=== PATIENT | male | born 1985 | race Two or more races ===

== ENCOUNTER 2018-10-11 10:07 | Inpatient (IN) | payer SELFPAY ==
--- NOTE | 2018-10-11 10:24 | ER Document Report ---
ED General - General Chief Complaint: Seizure Stated Complaint: POSSIBLE SEIZURE Time Seen by Provider: 10/11/18 10:23 Mode of Arrival: Medic Information source: Patient, Emergency Med Personnel - [facility] Notes: 31-year-old male to the emergency department via EMS with complaints of possible seizure. Medics report that a bystander called them when they found the patient on the ground and felt like maybe it had a seizure. When medics arrived he was up and walking around on the scene. Patient is Yoruba-speaking only and an deaf interpreter was used to gather history. Patient reports that this morning he went to work and then found out that he did not have to work. States that he was taken to a house that was not his by his boss and left there. States that he remembers feeling dizzy and lightheaded and starting to see "butterflies". He states that after that he remembers getting water. He does not know if there is anybody around him in this time where he does not know what happened. He states he has never had a seizure before. He states that he drinks approximately 3-4 beers a week and his last intake was on Thursday when he drank 4 beers. States he has no other medical problems. Denies drug use. Denies headache, chest pain, shortness of breath, diaphoresis, abdominal pain, back pain, leg pain. Of note he states that his tongue is bruised and he does not kn ow why. He is not up-to-date on his tetanus. 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 denies: Chest pain, Palpitations, Heart racing, Syncope, Edema Respiratory: denies: Cough, Short of breath Gastrointestinal: denies: Abdominal pain, Diarrhea, Nausea, Vomiting Genitourinary: denies: Frequency, Flank pain, Hematuria Musculoskeletal: denies: Leg swelling, Ankle swelling Neurological/Psychological: Other - Possible seizure-like activity. denies: Numbness -: Yes All other systems reviewed and negative Physical Exam - Vital signs Vitals: Resp BP Pulse Ox 20 144/99 H 95 10/11/18 10:16 10/11/18 10:16 10/11/18 10:16 - General In distress: None - HEENT Head: Normocephalic, Atraumatic Eyes: Normal Pupils: PERRL Mouth/Lips: Other - To the left lateral aspect of the tongue, there is an abrasion, edema, and ecchymosis likely from tongue biting, airway is grossly patent - Respiratory Respiratory status: No respiratory distress Chest status: Nontender Breath sounds: Normal Chest palpation: Normal - Cardiovascular Rhythm: Regular Heart sounds: Normal auscultation, S1 appreciated, S2 appreciated Murmur: No - Abdominal Inspection: Normal Distension: No distension Bowel sounds: Normal Tenderness: Nontender Organomegaly: No organomegaly - Back Back: Normal, Nontender. No: Vertebra tenderness, Wounds - Extremities General upper extremity: Normal inspection, Nontender, Normal color, Normal ROM, Normal temperature General lower extremity: Normal inspection, Nontender, Normal color, Normal ROM, Normal temperature, Normal weight bearing. No: Luís's sign - Neurological Neuro grossly intact: Yes Cognition: Normal Orientation: Disoriented to time. No: Disoriented to person - Lasix may, Disoriented to place [place] Coma Scale Eye Opening: Spontaneous [place] Coma Scale Verbal: Oriented [place] Coma Scale Motor: Obeys Commands [place] Coma Scale Total: 15 Speech: Normal Cranial nerves: Normal Cerebellar coordination: Normal - Normal finger to nose Additional motor exam normals: Equal mind reader, Other - Noted bilateral arm tremors and when lifting legs for leg drift there is also tremor; vision states this is a new symptom. No: Pronator drift - Psychological Associated symptoms: Normal affect, Anxious - Skin Skin Temperature: Warm Skin Moisture: Dry Skin Color: Normal Course - Vital Signs Vital signs: Temp Pulse Resp BP Pulse Ox 14 127/90 H 95 10/11/18 19:01 10/11/18 19:00 10/11/18 19:01 - Laboratory Result Diagrams: 10/11/18 10:19 10/11/18 10:19 Laboratory results interpreted by me: 10/11/18 10/11/18 10/11/18 10: 10:19 12:50 WBC 2.2 L Plt Count 78 L Abs Neuts (Manual) 1.0 L Potassium 3.5 L Carbon Dioxide 20 L Glucose 170 H Calcium 10.4 H Total Bilirubin 4.3 H Direct Bilirubin 1.5 H AST 231 H ALT 205 H Total Protein 8.6 H Albumin 5.2 H Urine Protein 100 H Urine Ketones 20 H Urine Urobilinogen 4.0 H - Transfer of Care Notes: 10/11/18 15:37 Progress: Noted labs and imaging. This patient for alcohol withdrawal seizures. Discussed patient with Dr. Delcid and we both agree that patient should be admitted for further management of alcohol withdrawal seizures. Went and rounded on patient, used deaf interpreter. Explained to patient about his labs and my concerns for alcohol withdrawal seizures and advised admission for further management. We had a lengthy conversation and he feels like he cannot stay due to work conflict. He does think that if he could go for an hour and he could return for treatment. Initially when evaluating patient he had some confusion on the month and thought it was august. His confusion has resolved and its possible that that is was related to a postictal state. He had a very intelligent and insightful conversation with me about his care and I have advised him that if he leaves he could have serious medical outcomes such as recurrence of seizure, hitting his head and sustaining a head injury, worsening alcohol withdrawal that leads to delirium tremens and in the encephalopathy, and could lead to . He voiced understanding and states he will return in 1 hour for admission and treatment. We did ambulate the patient and he did well. His tremors have significantly improved after getting Ativan. I discussed the fact that patient wanted to leave with Dr. Delcid and we both agree that he has medical capacity to make decision. However, we will have him sign an AGAINST MEDICAL ADVICE form. Plan to give thiamine and folic acid prior to discharge. Encourage the patient to return at any time for further treatment. Progress: Just prior to leaving [facility], patient decided he would stay for further care. He requests more medicine for his tremors as they have been starting to worsen. Will call Hospitalist team for admission Spoke with Dr. Govea, hospitalist, about the patient. He is aware of history of presenting illness, patient's labs, patient's tongue, ativan given to patient, abnormal liver enzymes. He agrees with the plan for admission and accepts patient onto his service. Discharge - Discharge Clinical Impression: Alcohol withdrawal seizure, Alcohol withdrawal, Abrasion of tongue, Elevated blood pressure reading Disposition: ADMITTED INPATIENT Admitting Provider: Xuan (Hospitalist) Unit Admitted: Telemetry
[2018-10-11 10:46] LABS: HEMATOCRIT 42.1 % (37.9-51.0); HEMOGLOBIN 14.8 g/dL (13.5-17.0); MEAN CORPUSCULAR HEMOGLOBIN 32.5 pg (27.0-33.4); MEAN CORPUSCULAR HGB CONC 35.1 g/dL (32.0-36.0); MEAN CORPUSCULAR VOLUME 93 fl (80-97); RED BLOOD COUNT 4.55 10^6/uL (4.35-5.55); RED CELL DISTRIBUTION WIDTH 13.8 % (11.5-14.0); WHITE BLOOD COUNT 2.2 10^3/uL (4.0-10.5)
[2018-10-11 11:06] LABS: PLATELET COUNT 78 10^3/uL (150-450)
[2018-10-11 11:09] LABS: ALANINE AMINOTRANSFERASE 205 U/L (21-72); ALBUMIN 5.2 g/dL (3.5-5.0); ALKALINE PHOSPHATASE 80 U/L (38-126); ANION GAP 19 (5-19); ASPARTATE AMINO TRANSFERASE 231 U/L (17-59); BILIRUBIN,DIRECT 1.5 mg/dL (0.0-0.4); BILIRUBIN,TOTAL 4.3 mg/dL (0.2-1.3); BLOOD UREA NITROGEN 12 mg/dL (7-20); CALCIUM 10.4 mg/dL (8.4-10.2); CARBON DIOXIDE 20 mmol/L (22-30); CHLORIDE 100 mmol/L (98-107); GLUCOSE 170 mg/dL (75-110); POTASSIUM 3.5 mmol/L (3.6-5.0); SODIUM 138.8 mmol/L (137-145); TOTAL PROTEIN 8.6 g/dL (6.3-8.2)
[2018-10-11 11:11] LABS: ABSOLUTE LYMPHOCYTES# (MANUAL) 0.9 10^3/uL (0.5-4.7); ABSOLUTE MONOCYTES # (MANUAL) 0.2 10^3/uL (0.1-1.4); ALCOHOL < 10 mg/dL (NONE DETECTED); BASOPHILS % (MANUAL) 1 % (0-2); EOSINOPHILS % (MANUAL) 1 % (0-6); LYMPHOCYTES % (MANUAL) 33 % (13-45); MONOCYTES % (MANUAL) 11 % (3-13); SEGMENTED NEUTROPHILS % (MAN) 45 % (42-78); TOTAL CELLS COUNTED 100
[2018-10-11 11:12] LABS: PLATELET COMMENT DECREASED; PLATELET LARGE PRESENT; RBC MORPHOLOGY COMMENT NORMO-CYTIC/CHROMIC
[2018-10-11] MEDS ORDERED: LORAZEPAM INJ 2 MG/1 ML VIAL IV ONE ×2 (11:46→17:00)
--- NOTE | 2018-10-11 11:47 | RADIOLOGY REPORT (SQ) ---
EXAM DESCRIPTION: CT HEAD WITHOUT COMPLETED DATE/TIME: 10/11/2018 11:31 am REASON FOR STUDY: possible seizure COMPARISON: None. TECHNIQUE: Axial images acquired through the brain without intravenous contrast. Images reviewed wi th bone, brain and subdural windows. Additional sagittal and coronal reconstructions were generated. Images stored on PACS. All CT scanners at this facility use dose modulation, iterative reconstruction, and/or weight based d osing when appropriate to reduce radiation dose to as low as reasonably achievable (ALARA). [facility]: Dose Right [facility]: CareDose [facility]: Dose Right [facility]: Teradose 4D [facility]: Topguest RADIATION DOSE: CT Rad equipment meets quality standard of care and radiation dose reduction techniq ues were employed. CTDIvol: 53.2 mGy. DLP: 991 mGy-cm. mGy. LIMITATIONS: None. FINDINGS: VENTRICLES: Normal size and contour. CEREBRUM: No masses. No hemorrhage. No midline shift. No evidence for acute infarction. Normal gra y/white matter differentiation. No areas of low density in the white matter. CEREBELLUM: No masses. No hemorrhage. No alteration of density. No evidence for acute infarction. EXTRAAXIAL SPACES: No fluid collections. No masses. ORBITS AND GLOBE: No intra- or extraconal masses. Normal contour of globe without masses. CALVARIUM: No fracture. PARANASAL SINUSES: No fluid or mucosal thickening. SOFT TISSUES: No mass or hematoma. OTHER: No other significant finding. IMPRESSION: NORMAL BRAIN CT WITHOUT CONTRAST. EVIDENCE OF ACUTE STROKE: NO. COMMENT: Quality ID # [id number]: Final reports with documentation of one or more dose reduction techniques (e.g., Automated exposure control, adjustment of the mA and/or kV according to patient size, use of iterative reconstruction technique) TECHNICAL DOCUMENTATION: JOB ID: [id number]- All Rights Reserved Reading location - IP/workstation name: [email or web address]
[2018-10-11] MEDS ORDERED: DIPH/PERTUSS(ACELL)/TETANUS VAC/PF 0.5 ML SYR (>=10YO) IM ONE (12:06)
[2018-10-11 13:28] LABS: AMORPHOUS SEDIMENT,URINE TRACE /HPF; APPEARANCE,URINE CLOUDY; BILIRUBIN,URINE NEGATIVE (NEGATIVE); COLOR,URINE AMBER; GLUCOSE, URINE NEGATIVE (NEGATIVE); KETONES,URINE 20 mg/dL (NEGATIVE); LEUKOCYTE ESTERASE,URINE NEGATIVE (NEGATIVE); NITRITE,URINE NEGATIVE (NEGATIVE); PROTEIN,URINE 100 mg/dL (NEGATIVE); URINE SPECIFIC GRAVITY 1.024
[2018-10-11 13:47] LABS: URINE AMPHETAMINES SCREEN NEGATIVE; URINE BARBITURATES SCREEN NEGATIVE; URINE BENZODIAZEPINES SCREEN NEGATIVE; URINE COCAINE SCREEN NEGATIVE; URINE MARIJUANA (THC) SCREEN NEGATIVE; URINE METHADONE SCREEN NEGATIVE; URINE PHENCYCLIDINE SCREEN NEGATIVE
[2018-10-11] MEDS ORDERED: THIAMINE HCL 100 MG, FOLIC ACID 1 MG in NORMAL SALINE 250 ML IV ONE (14:45)
[2018-10-11] MEDS ORDERED: NORMAL SALINE 1000 ML 1,000 ML IV ONE (14:45)
[2018-10-11 15:35] LABS: INTERNATIONAL RATION (INR) 1.12
[2018-10-11 15:36] LABS: PARTIAL THROMBOPLASTIN TIME 27.3 SEC (23.5-35.8)
[2018-10-11] MEDS ORDERED: GLUCAGON,HUMAN RECOMB 1 MG INJ SUBCUT PRN (17:45)
[2018-10-11] MEDS ORDERED: DEXTROSE 40% GEL 15 GM TUBE PO PRN ×2 (17:45)
[2018-10-11] MEDS ORDERED: DEXTROSE 50%-WATER 25 GM/50 ML DISP.SYRIN IV PRN ×2 (17:45)
[2018-10-11] MEDS ORDERED: LORAZEPAM INJ 2 MG/1 ML VIAL IV PRN (17:50)
[2018-10-11] MEDS ORDERED: LEVETIRACETAM INJ/PF 500 MG/5 ML SDV IV SCH (18:00)
--- NOTE | 2018-10-11 18:02 | PDOC H&P ---
History of Present Illness Admission Date/PCP: 10/11/18 17:12 Patient complains of: Brought in by EMS with seizure activity History of Present Illness: CHITRA MARQUEZ is a 32 year old male with history of alcohol abuse brought to the emergency room by EMS with seizure activity. According to the patient is walking this morning on the street all of a sudden felt like butterflies with blurred vision then second time he has bright light in his eyes felt like he has a bright light focused on his and his eyes and after that he he does not know exactly what happened and ended up in the ER. Patient admitted he is drinking 3 bottles or 12 ounces of beer every day last one is on Thursday. He never had a seizure before. Denies any tongue bite denies any urinary incontinence fecal incontinence. In the emergency room CT head was done which was negative for acut e pathology, at the time of my examination patient is alert awake oriented able to communicate well through park interpreter. Past Medical History Cardiac Medical History: Denies: Congestive Heart Failure, Coronary Artery Disease, DVT, Myocardial Infarction, Hypertension Pulmonary Medical History: Denies: Asthma Endocrine Medical History: Denies: Diabetes Mellitus Type 2 Past Surgical History Past Surgical History: Reports: None Social History Lives with: Alone Smoking Status: Current Every Day Smoker Frequency of Alcohol Use: Heavy Hx Recreational Drug Use: No Hx Prescription Drug Abuse: No - Advance Directive Resuscitation Status: Full Code Family History Family History: Reviewed & Not Pertinent Parental Family History Reviewed: Yes Children Family History Reviewed: Yes Sibling(s) Family History Reviewed.: Yes Medication/Allergy Allergies/Adverse Reactions: No Known Allergies Allergy (Unverified 10/11/18 13:26) Review of Systems Constitutional: ABSENT: chills, fatigue, fever(s) Eyes: ABSENT: visual disturbances Ears: ABSENT: hearing changes Nose, Mouth, and Throat: ABSENT: sore throat Cardiovascular: PRESENT: palpitations. ABSENT: dyspnea on exertion Respiratory: ABSENT: cough, hemoptysis Gastrointestinal: ABSENT: abdominal pain, constipation, diarrhea, hematemesis, hematochezia, nausea, vomiting Musculoskeletal: ABSENT: joint swelling Neurological: PRESENT: confusion, dizziness, memory loss, numbness, vertigo, other Psychiatric: ABSENT: anxiety, depression, homidical ideation, suicidal ideation Physical Exam Vital Signs: Temp Pulse Resp BP Pulse Ox 19 141/96 H 97 10/11/18 16:00 10/11/18 16:00 10/11/18 16:00 Intake & Output 10/10/18 10/11/18 10/12/18 06:59 06:59 06:59 Intake Total 251.2 Balance 251.2 General appearance: PRESENT: no acute distress Head exam: PRESENT: atraumatic Eye exam: PRESENT: PERRLA Mouth exam: PRESENT: moist, tongue midline Teeth exam: PRESENT: poor dentation Neck exam: ABSENT: carotid bruit, JVD, lymphadenopathy, thyromegaly Respiratory exam: PRESENT: decreased breath sounds Cardiovascular exam: PRESENT: tachycardia GI/Abdominal exam: PRESENT: normal bowel sounds, soft. ABSENT: distended, guarding, mass, organolmegaly, rebound, tenderness Rectal exam: PRESENT: deferred Extremities exam: PRESENT: full ROM. ABSENT: calf tenderness, clubbing, pedal edema Neurological exam: PRESENT: alert, awake, oriented to person, oriented to place, oriented to time, oriented to situation, CN II-XII grossly intact. ABSENT: motor sensory deficit Psychiatric exam: PRESENT: appropriate affect, normal mood. ABSENT: homicidal ideation, suicidal ideation Results Laboratory Results: 10/11/18 10:19 10/11/18 10:19 10/11/18 10/11/18 10/11/18 10:19 10:19 12:50 WBC 2.2 L RBC 4.55 Hgb 14.8 Hct 42.1 MCV 93 MCH 32.5 MCHC 35.1 RDW 13.8 Plt Count 78 L Seg Neutrophils % Not Reportable Lymphocytes % Not Reportable Monocytes % Not Reportable Eosinophils % Not Reportable Basophils % Not Reportable Absolute Neutrophils Not Reportable Absolute Lymphocytes Not Reportable Absolute Monocytes Not Reportable Absolute Eosinophils Not Reportable Absolute Basophils Not Reportable Sodium 138.8 Potassium 3.5 L Chloride 100 Carbon Dioxide 20 L Anion Gap 19 BUN 12 Creatinine 0.67 Est GFR ( Amer) > 60 Est GFR (Non-Af Amer) > 60 Glucose 170 H Calcium 10.4 H Magnesium 2.0 Total Bilirubin 4.3 H AST 231 H ALT 205 H Alkaline Phosphatase 80 Total Protein 8.6 H Albumin 5.2 H Urine Color DAVID Urine Appearance CLOUDY Urine pH 7.0 Ur Specific [place] 1.024 Urine Protein 100 H Urine Glucose (UA) NEGATIVE Urine Ketones 20 H Urine Blood NEGATIVE Urine Nitrite NEGATIVE Ur Leukocyte Esterase NEGATIVE Urine WBC (Auto) 1 Urine RBC (Auto) 3 Impressions: Head CT 10/11/18 11:11 IMPRESSION: NORMAL BRAIN CT WITHOUT CONTRAST. EVIDENCE OF ACUTE STROKE: NO. Assessment and Plan - Diagnosis (1) Alcohol withdrawal seizure Is this a current diagnosis for this admission?: Yes Plan: 10/11/[id number]-gtsu-old male with history of alcohol abuse brought into the emergency room seizure activity alcohol level was during the hot emergency room. Last drink was on Thursday. Most likely seizure is related to alcohol withdrawal. Plan to put him in IMCU to keep her n.p.o. started on IV Keppra 500 mg every 12 hours, started on banana bag daily, started on IV Ativan 2 mg every 2 hours PRN for agitation, Valium 10 mg IV every 4 as needed for agitation. GI prophylaxis DVT prophylaxis initiated. Psych consult is going to be requested. (2) Tobacco abuse Is this a current diagnosis for this admission?: No Plan: 10/11/2018-patient admitted is a chronic current day smoker. Smoking counseling was provided for more than 10 minutes. Nicotine patch was offered. (3) Liver function study, abnormal Is this a current diagnosis for this admission?: Yes Plan: 10/11/2018-patient came in elevated liver enzymes. Most likely secondary to chronic alcohol abuse. To request for hepatitis profile. (4) HTN (hypertension) Is this a current diagnosis for this admission?: Yes Plan: 10/11/2018-patient blood pressure is 1 4119 in the emergency room elevated blood pressure most likely secondary to alcohol withdrawal. To start him on IV hydralazine 10 mg every 6 PRN for systolic blood pressure more than 150. - Time Time Spent with patient: 25-34 minutes Smoking Cessation Education: over 10 minutes Medications reviewed and adjusted accordingly: Yes Anticipated discharge: Home
--- NOTE | 2018-10-11 18:22 | RADIOLOGY REPORT (SQ) ---
EXAM DESCRIPTION: CHEST 2 VIEWS COMPLETED DATE/TIME: 10/11/2018 6:08 pm REASON FOR STUDY: shortness of breath COMPARISON: None. EXAM PARAMETERS: NUMBER OF VIEWS: two views TECHNIQUE: Digital Frontal and Lateral radiographic views of the chest acquired. RADIATION DOSE: NA LIMITATIONS: none FINDINGS: LUNGS AND PLEURA: No opacities, masses or pneumothorax. No pleural effusion. MEDIASTINUM AND HILAR STRUCTURES: No masses or contour abnormalities. HEART AND VASCULAR STRUCTURES: Heart normal size. No evidence for failure. BONES: No acute findings. HARDWARE: None in the chest. OTHER: No other significant finding. IMPRESSION: NO ACUTE RADIOGRAPHIC FINDING IN THE CHEST. TECHNICAL DOCUMENTATION: JOB ID: [id number] [employer]- All Rights Reserved Reading location - IP/workstation name: [email or web address]
[2018-10-11] MEDS: LEVETIRACETAM 500 MG/NACL-ISO 500 MG/100 ML RTUPB IV SCH (18:52)
[2018-10-11] MEDS: NORMAL SALINE 1000 ML 1,000 ML IV PRN (20:43)
[2018-10-11] MEDS: DIAZEPAM INJ 10 MG/2 ML DISP.SYRIN IV PRN (21:01)
[2018-10-11] MEDS: PANTOPRAZOLE SODIUM 40 MG VIAL IV SCH (22:34)
[2018-10-11] MEDS: NORMAL SALINE 1000 ML 1,000 ML with POTASSIUM CHLORIDE 20 MEQ, MAGNESIUM SULFATE 8 MEQ,... IV SCH ×5 (22:34)
--- NOTE | 2018-10-11 23:35 | EKG REPORT ---
SEVERITY:- ABNORMAL ECG - SINUS RHYTHM LEFT ANTERIOR FASCICULAR BLOCK NONSPECIFIC T ABNORMALITIES, INFERIOR LEADS : Confirmed by: Marce Lehman MD 11-Oct-2018 23:35:11
[2018-10-12] MEDS: DIAZEPAM INJ 10 MG/2 ML DISP.SYRIN IV PRN (03:45)
[2018-10-12] MEDS ORDERED: LEVETIRACETAM 500 MG/NACL-ISO 500 MG/100 ML RTUPB IV ONE (05:48)
[2018-10-12] MEDS: LEVETIRACETAM 500 MG/NACL-ISO 500 MG/100 ML RTUPB IV SCH ×2 (06:07→17:27)
[2018-10-12] MEDS: NORMAL SALINE 1000 ML 1,000 ML IV PRN (06:12)
[2018-10-12 06:37] LABS: ARTERIAL BLOOD BASE EXCESS -2.9 mmol/L; ARTERIAL BLOOD H2CO3 0.98 mmol/L (1.05-1.35); ARTERIAL BLOOD HCO3 20.5 mmol/L (20-24); ARTERIAL BLOOD O2 SATURATION 97.7 % (94-98); ARTERIAL BLOOD PCO2 32.7 mmHg (35-45); ARTERIAL BLOOD PH 7.42 (7.35-7.45); ARTERIAL BLOOD PO2 100.1 mmHg (80-100); ARTERIAL BLOOD TOTAL CO2 21.5 mmol/L (23-27)
[2018-10-12 06:38] LABS: ARTERIAL BLOOD FIO2 ROOM AIR
[2018-10-12 07:19] LABS: ABSOLUTE LYMPHOCYTES (AUTO) 1.1 10^3/uL (0.5-4.7); ABSOLUTE MONOCYTES (AUTO) 0.6 10^3/uL (0.1-1.4); ABSOLUTE NEUT (AUTO) 1.7 10^3/uL (1.7-8.2); BASOPHILS % (AUTO) 0.6 % (0-2); EOSINOPHILS % (AUTO) 0.9 % (0-6); HEMATOCRIT 41.3 % (37.9-51.0); HEMOGLOBIN 14.5 g/dL (13.5-17.0); LYMPHOCYTES % (AUTO) 32.2 % (13-45); MEAN CORPUSCULAR HEMOGLOBIN 32.7 pg (27.0-33.4); MEAN CORPUSCULAR HGB CONC 35.1 g/dL (32.0-36.0); MEAN CORPUSCULAR VOLUME 93 fl (80-97); MONOCYTES % (AUTO) 18.1 % (3-13); RED BLOOD COUNT 4.43 10^6/uL (4.35-5.55); SEGMENTED NEUTROPHILS % (AUTO) 48.2 % (42-78); TOTAL CELLS COUNTED % (AUTO) 100 %; WHITE BLOOD COUNT 3.5 10^3/uL (4.0-10.5)
[2018-10-12 07:37] LABS: ALANINE AMINOTRANSFERASE 174 U/L (21-72); ALBUMIN 4.6 g/dL (3.5-5.0); ALKALINE PHOSPHATASE 59 U/L (38-126); ANION GAP 13 (5-19); ASPARTATE AMINO TRANSFERASE 148 U/L (17-59); BILIRUBIN,TOTAL 3.6 mg/dL (0.2-1.3); BLOOD UREA NITROGEN 6 mg/dL (7-20); CARBON DIOXIDE 20 mmol/L (22-30); CHLORIDE 104 mmol/L (98-107); CREATINE KINASE 350 U/L (55-170); GLUCOSE 73 mg/dL (75-110); POTASSIUM 3.4 mmol/L (3.6-5.0); SODIUM 137.3 mmol/L (137-145); TOTAL PROTEIN 7.6 g/dL (6.3-8.2)
[2018-10-12 07:48] LABS: CREATINE KINASE MB 1.32 ng/mL (<4.55); NT PRO BNP 91 pg/mL (<125)
[2018-10-12 07:53] LABS: TROPONIN I < 0.012 ng/mL
[2018-10-12 08:34] LABS: PLATELET COUNT 68 10^3/uL (150-450)
[2018-10-12] MEDS: ENOXAPARIN SODIUM INJ 40 MG/0.4 ML DISP.SYRIN SUBCUT SCH (10:05)
[2018-10-12] MEDS: NICOTINE 14 MG/24 HR PATCH.TD24 TD SCH (10:07)
[2018-10-12] MEDS: PANTOPRAZOLE SODIUM 40 MG VIAL IV SCH ×2 (10:22→21:04)
[2018-10-12] MEDS: DIAZEPAM 5 MG TABLET PO SCH ×2 (13:21→21:04)
[2018-10-12] MEDS: NORMAL SALINE 1000 ML 1,000 ML with POTASSIUM CHLORIDE 20 MEQ, MAGNESIUM SULFATE 8 MEQ,... IV SCH ×5 (17:54)
--- NOTE | 2018-10-12 18:29 | PDOC PROGRESS REPORT ---
Subjective Progress Note for:: 10/12/18 Subjective:: The patient is a 32-year-old male with a past medical history of alcohol dependence and abuse who was admitted 10/11/2018 for alcohol withdrawal seizure. Patient was seen on morning rounds with nursing present. [employer] was used for translation services. Patient was found resting in bed comfortably on room air. He was noted to be diaphoretic, disheveled, with foul body odor, and tremor. Patient reports headache and lower back pain but otherwise denies complaints. He denies previous history of seizure or alcohol withdrawal. He denies fever, chills, chest pain, palpitations, dyspnea, orthopnea, abdominal pain, nausea vomiting or diarrhea. He is asking to eat. He has no other questions or concerns at this time. No concerns per nursing. Reason For Visit: SEIZURE Physical Exam Vital Signs: Temp Pulse Resp BP Pulse Ox 98.0 F 72 16 122/66 96 10/12/18 16:32 10/12/18 16:32 10/12/18 16:32 10/12/18 16:32 10/12/18 16:32 Intake & Output 10/11/18 10/12/18 10/13/18 06:59 06:59 06:59 Intake Total 1451.2 3198 Output Total 1075 700 Balance 376.2 2498 Weight 71.8 kg General appearance: PRESENT: no acute distress, disheveled, well-developed, well-nourished Head exam: PRESENT: atraumatic, normocephalic Eye exam: PRESENT: conjunctiva pink, EOMI, PERRLA. ABSENT: scleral icterus Ear exam: PRESENT: normal external ear exam Mouth exam: PRESENT: moist, tongue midline Teeth exam: PRESENT: poor dentation Neck exam: ABSENT: carotid bruit, JVD, lymphadenopathy, thyromegaly Respiratory exam: PRESENT: clear to auscultation bharat, symmetrical, unlabored. ABSENT: rales, rhonchi, wheezes Cardiovascular exam: PRESENT: RRR, +S1, +S2. ABSENT: diastolic murmur, rubs, systolic murmur Pulses: PRESENT: normal dorsalis pedis pul Vascular exam: PRESENT: normal capillary refill GI/Abdominal exam: PRESENT: normal bowel sounds, soft. ABSENT: distended, guarding, mass, organolmegaly, rebound, tenderness Rectal exam: PRESENT: deferred Extremities exam: PRESENT: full ROM. ABSENT: calf tenderness, clubbing, pedal edema Neurological exam: PRESENT: alert, awake, oriented to person, oriented to place, oriented to time, oriented to situation, CN II-XII grossly intact, other - Tremulous; difficulty assessing for orientation and visual/auditory hallucinations (patient did not appear to understand questions even with use of fur buyer service). ABSENT: motor sensory deficit Psychiatric exam: PRESENT: appropriate affect, normal mood. ABSENT: homicidal ideation, suicidal ideation Skin exam: PRESENT: dry, intact, warm, other - Diaphoretic. ABSENT: cyanosis, rash Results Laboratory Results: 10/12/18 06:26 10/12/18 06:26 10/12/18 10/12/18 10/12/18 05:55 06:26 06:26 WBC 3.5 L RBC 4.43 Hgb 14.5 Hct 41.3 MCV 93 MCH 32.7 MCHC 35.1 RDW 14.0 Plt Count 68 L Seg Neutrophils % 48.2 Lymphocytes % 32.2 Monocytes % 18.1 H Eosinophils % 0.9 Basophils % 0.6 Absolute Neutrophils 1.7 Absolute Lymphocytes 1.1 Absolute Monocytes 0.6 Absolute Eosinophils 0.0 Absolute Basophils 0.0 Carbonic Acid 0.98 L HCO3/H2CO3 Ratio 20:1 ABG pH 7.42 ABG pCO2 32.7 L ABG pO2 100.1 H ABG HCO3 20.5 ABG O2 Saturation 97.7 ABG Base Excess -2.9 FiO2 ROOM AIR Sodium 137.3 Potassium 3.4 L Chloride 104 Carbon Dioxide 20 L Anion Gap 13 BUN 6 L Creatinine 0.43 L Est GFR ( Amer) > 60 Est GFR (Non-Af Amer) > 60 Glucose 73 L Calcium 9.0 Total Bilirubin 3.6 H AST 148 H ALT 174 H Alkaline Phosphatase 59 Total Protein 7.6 Albumin 4.6 10/12/18 10/12/18 06:26 06:26 Creatine Kinase 350 H CK-MB (CK-2) 1.32 Troponin I < 0.012 NT-Pro-B Natriuret Pep 91 Impressions: Head CT 10/11/18 11:11 IMPRESSION: NORMAL BRAIN CT WITHOUT CONTRAST. EVIDENCE OF ACUTE STROKE: NO. Chest X-Ray 10/11/18 17:47 IMPRESSION: NO ACUTE RADIOGRAPHIC FINDING IN THE CHEST. Assessment and Plan - Diagnosis (1) Alcohol withdrawal seizure Is this a current diagnosis for this admission?: Yes Plan: Patient reports his last drink was on Thursday. He states that he drinks 32 ounces of beer daily; however, per nursing he did admit to eight 40 ounces daily to the night supervisor nurse. Most likely seizure is related to alcohol withdrawal. Patient has been admitted to [facility] on continuous cardiac telemetry. He is placed on scheduled p.o. Valium. He is provided as needed IV Ativan for anxiety/agitation or withdrawal symptoms. Mental health consultation is requested. Fall, seizure, aspiration precautions in place. (2) HTN (hypertension) Is this a current diagnosis for this admission?: Yes Plan: Likely secondary to alcohol withdrawal. IV hydralazine as needed for blood pressure control. We will monitor for indications patient will require chronic antihypertensives at discharge. (3) Liver function study, abnormal Is this a current diagnosis for this admission?: Yes Plan: Improving. Most likely secondary to chronic alcohol abuse. Hepatitis profile pending. (4) Tobacco abuse Is this a current diagnosis for this admission?: Yes Plan: Smoking cessation is encouraged. Nicotine or placement therapies are provided. (5) Seizure Is this a current diagnosis for this admission?: Yes Plan: Likely secondary to alcohol withdrawal. Patient reports that his last drink was Thursday; 3 days prior to seizure activity. He is given inconsistent reports as to the amount of alcohol he drinks at baseline. He is clearly in withdrawal today. He denies previous history of seizures or epileptic disorder. Patient has been started on IV Keppra; do not anticipate that he will require continue medication at discharge. Will discuss with patient again prior to discharge. Treatment for alcohol withdrawal as above. - Time Time Spent with patient: 25-34 minutes Medications reviewed and adjusted accordingly: Yes Anticipated discharge: Home Within: within 72 hours
--- NOTE | 2018-10-12 20:02 | PSYCHOLOGICAL NOTE ---
Psych Note - Psych Note Date seen by psych provider: 10/12/18 Psych Note: Presenting Problem: Alcohol Abuse and concern for withdrawal. Had a seizure. Medical documentation noted patient reported drinking 3 bottles or 12 ounce beers daily, last one was Thursday. He was a same day admit for alcohol withdrawal seizure, tobacco use, liver function study abnormal and HTN. MAR has Valium, Keppra and Ativan listed for seizure. Conducted chart review at 1505. Attempted evaluation at 1930. Patient is Bots[place]an speaking only. No MARTII available. [facility] will have to see if ED MARTII available tomorrow and conduct evaluation. Diagnosis: Unspecified Alcohol Use Disorder Medication recommendations made by the psychiatric medical provider, Dr. Angela MD., includes: Discontinue Ativan Discontinue Valium Continue Keppra 500MG twice a day for mood stabilization/seizure Add Effexor 37.5MG daily for depression/increase energy/focus/to curb alcohol cravings Impression/Plan: Still need to do evaluation. Provided medication recommendations. Will link to detox or other SA treatment/care depending on what patient is open to. Consulted with Dr. Barba regarding the management and care of patient.
[2018-10-13] MEDS: DIAZEPAM 5 MG TABLET PO SCH ×3 (05:14→23:00)
[2018-10-13] MEDS: LEVETIRACETAM 500 MG/NACL-ISO 500 MG/100 ML RTUPB IV SCH (05:14)
[2018-10-13 07:07] LABS: ABSOLUTE LYMPHOCYTES (AUTO) 0.8 10^3/uL (0.5-4.7); ABSOLUTE MONOCYTES (AUTO) 0.5 10^3/uL (0.1-1.4); ABSOLUTE NEUT (AUTO) 1.6 10^3/uL (1.7-8.2); BASOPHILS % (AUTO) 0.7 % (0-2); EOSINOPHILS % (AUTO) 1.1 % (0-6); HEMATOCRIT 43.7 % (37.9-51.0); HEMOGLOBIN 15.4 g/dL (13.5-17.0); LYMPHOCYTES % (AUTO) 26.1 % (13-45); MEAN CORPUSCULAR HGB CONC 35.3 g/dL (32.0-36.0); MEAN CORPUSCULAR VOLUME 93 fl (80-97); MONOCYTES % (AUTO) 15.7 % (3-13); RED BLOOD COUNT 4.68 10^6/uL (4.35-5.55); RED CELL DISTRIBUTION WIDTH 13.9 % (11.5-14.0); SEGMENTED NEUTROPHILS % (AUTO) 56.4 % (42-78); TOTAL CELLS COUNTED % (AUTO) 100 %; WHITE BLOOD COUNT 2.9 10^3/uL (4.0-10.5)
[2018-10-13 07:25] LABS: ALANINE AMINOTRANSFERASE 222 U/L (21-72); ALBUMIN 4.9 g/dL (3.5-5.0); ALKALINE PHOSPHATASE 77 U/L (38-126); ANION GAP 14 (5-19); ASPARTATE AMINO TRANSFERASE 183 U/L (17-59); BILIRUBIN,DIRECT 0.8 mg/dL (0.0-0.4); BILIRUBIN,TOTAL 2.6 mg/dL (0.2-1.3); BLOOD UREA NITROGEN 8 mg/dL (7-20); CALCIUM 9.4 mg/dL (8.4-10.2); CARBON DIOXIDE 21 mmol/L (22-30); CHLORIDE 104 mmol/L (98-107); GLUCOSE 99 mg/dL (75-110); SODIUM 138.6 mmol/L (137-145); TOTAL PROTEIN 8.5 g/dL (6.3-8.2)
[2018-10-13 08:06] LABS: PLATELET COUNT 83 10^3/uL (150-450)
[2018-10-13] MEDS: POTASSI CL 20 MEQ/50 ML RIDER 20 MEQ/50 ML RTUPB IV SCH ×2 (08:50→10:31)
[2018-10-13] MEDS ORDERED: POTASSIUM CHLORIDE 10 MEQ CAPSULE.ER PO ONE (09:30)
[2018-10-13] MEDS: NICOTINE 14 MG/24 HR PATCH.TD24 TD SCH (09:34)
[2018-10-13] MEDS: ENOXAPARIN SODIUM INJ 40 MG/0.4 ML DISP.SYRIN SUBCUT SCH (09:34)
[2018-10-13] MEDS: PANTOPRAZOLE SODIUM 40 MG VIAL IV SCH (10:01)
[2018-10-13] MEDS ORDERED: OXYCODONE HCL IR 5 MG TABLET PO PRN (14:42)
--- NOTE | 2018-10-13 16:13 | PSYCHOLOGICAL NOTE ---
Psych Note - Psych Note Date seen by psych provider: 10/13/18 Time seen by psych provider: 11:30 - 1140 Psych Note: Presenting Problem: Alcohol Abuse and concern for withdrawal. Had a seizure. Medical documentation noted patient reported drinking 3 bottles or 12 ounce b eers daily, last one was Thursday. He was a same day admit for alcohol withdrawal seizure, tobacco use, liver function study abnormal and HTN. MAR has Valium, Keppra and Ativan listed for seizure. Patient reports that he came to [place] after passing out. He confirms that he was drinking some alcohol with a friend for approximately 3 days straight but reports that they drink approximately a 24 pack between the 2 of them during that time. He states that this was a month or so ago and denies significant history of drinking; reports only recreational drinking. Patient reports that he feels that he passed out because he had not eaten anything or drink any water. He continued to disclose that earlier in the day he was feeling dizzy however did not stop to eat or drink anything. He denies any history of mental health concerns. Patient is alert and orientated to person, place, time and circumstance. Mood is euthymic with congruent affect as evidenced by smiling engaging with clinician. Patient denies suicidal homicidal ideations. Delusions are absent behaviors congruent with an intact reality based presentation i.e. organized linear thought process. Eye contact was well-maintained. Conversational speech is within normal rate, tone and prosody; evaluation conducted in [place]. Intellectual abilities appear to be average range. Attention and concentration are good. Insight, judgment, impulse control are fair. Diagnosis: R/O Unspecified Alcohol Use Disorder Medication recommendations made by the psychiatric medical provider, Dr. Angela MD., includes: Discontinue Ativan Discontinue Valium Continue Keppra 500MG twice a day for mood stabilization/seizure Add Effexor 37.5MG daily for depression/increase energy/focus/to curb alcohol cravings Impression/Plan: Patient is cleared from acute psychiatric services. Patient denies substance abuse stating that it has been 2 months since he has really drank and that prior to that he did drink with a friend a 24 case of beer in a matter of couple days. Patient denies any mental health history or need for any substance abuse treatment. Patient does believe he did not eat and drink enough which resulted in him passing out. Dr. Barba was consulted to care management of this patient; attending physicians in agreement with recommendations and disposition.
--- NOTE | 2018-10-13 16:33 | PDOC PROGRESS REPORT ---
Subjective Progress Note for:: 10/13/18 Subjective:: The patient is a 32-year-old male with a past medical history of alcohol dependence and abuse who was admitted 10/11/2018 for alcohol withdrawal seizure. Patient was seen on morning rounds with nursing present. [employer] was used for translation services. Patient was found resting in bed comfortably on room air. Patient reports slight headache and tongue pain, but otherwise reports that he is feeling well. He denies dizziness, blurred vision, fever, chills, chest pain, palpitations, dyspnea, orthopnea, back pain, abdominal pain, nausea and vomiting. He does re port multiple episodes of loose stools today. He has no other questions or concerns at this time. No concerns per nursing. Reason For Visit: SEIZURE Physical Exam Vital Signs: Temp Pulse Resp BP Pulse Ox 97.6 F 72 16 133/91 H 97 10/13/18 16:14 10/13/18 16:14 10/13/18 16:14 10/13/18 16:14 10/13/18 16:14 Intake & Output 10/12/18 10/13/18 10/14/18 06:59 06:59 06:59 Intake Total 1451.2 4681 660 Output Total 1075 700 Balance 376.2 3981 660 Weight 71.8 kg 75.2 kg General appearance: PRESENT: no acute distress, disheveled, well-developed, well-nourished - overweight Head exam: PRESENT: atraumatic, normocephalic Eye exam: PRESENT: conjunctiva pink, EOMI, PERRLA. ABSENT: scleral icterus Ear exam: PRESENT: normal external ear exam Mouth exam: PRESENT: moist, tongue midline, other - Abrasion and ecchymosis to left lateral aspect of tongue Neck exam: ABSENT: carotid bruit, JVD, lymphadenopathy, thyromegaly Respiratory exam: PRESENT: clear to auscultation bharat, symmetrical, unlabored. ABSENT: rales, rhonchi, wheezes Cardiovascular exam: PRESENT: RRR. ABSENT: diastolic murmur, rubs, systolic murmur Pulses: PRESENT: normal dorsalis pedis pul Vascular exam: PRESENT: normal capillary refill GI/Abdominal exam: PRESENT: normal bowel sounds, soft. ABSENT: distended, guarding, mass, organolmegaly, rebound, tenderness Rectal exam: PRESENT: deferred Extremities exam: PRESENT: full ROM. ABSENT: calf tenderness, clubbing, pedal edema Neurological exam: PRESENT: alert, awake, oriented to person, oriented to place, oriented to time, oriented to situation, CN II-XII grossly intact. ABSENT: motor sensory deficit Psychiatric exam: PRESENT: appropriate affect, normal mood. ABSENT: homicidal ideation, suicidal ideation Skin exam: PRESENT: dry, intact, warm. ABSENT: cyanosis, rash Results Laboratory Results: 10/13/18 05:56 10/13/18 05:56 10/13/18 10/13/18 10/13/18 05:56 05:56 05:56 WBC 2.9 L RBC 4.68 Hgb 15.4 Hct 43.7 MCV 93 MCH 33.0 MCHC 35.3 RDW 13.9 Plt Count 83 L Seg Neutrophils % 56.4 Lymphocytes % 26.1 Monocytes % 15.7 H Eosinophils % 1.1 Basophils % 0.7 Absolute Neutrophils 1.6 L Absolute Lymphocytes 0.8 Absolute Monocytes 0.5 Absolute Eosinophils 0.0 Absolute Basophils 0.0 Sodium 138.6 Potassium 3.0 L* Chloride 104 Carbon Dioxide 21 L Anion Gap 14 BUN 8 Creatinine 0.50 L Est GFR ( Amer) > 60 Est GFR (Non-Af Amer) > 60 Glucose 99 Calcium 9.4 Magnesium 2.1 Total Bilirubin 2.6 H AST 183 H ALT 222 H Alkaline Phosphatase 77 Total Protein 8.5 H Albumin 4.9 10/12/18 10/12/18 06:26 06:26 Creatine Kinase 350 H CK-MB (CK-2) 1.32 Troponin I < 0.012 NT-Pro-B Natriuret Pep 91 Impressions: Head CT 10/11/18 11:11 IMPRESSION: NORMAL BRAIN CT WITHOUT CONTRAST. EVIDENCE OF ACUTE STROKE: NO. Chest X-Ray 10/11/18 17:47 IMPRESSION: NO ACUTE RADIOGRAPHIC FINDING IN THE CHEST. Assessment and Plan - Diagnosis (1) Alcohol withdrawal seizure Is this a current diagnosis for this admission?: Yes Plan: Patient reports his last drink was on Thursday. 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 Amount of EtOH intake again changed when discussing with mental health services today. Patient has been admitted to [facility] on continuous cardiac telemetry. He is placed on scheduled p.o. Valium; will decrease dose today. He is provided as needed IV Ativan for anxiety/agitation or withdrawal symptoms. Mental health consultation is requested; appreciate their evaluation. Fall, seizure, aspiration precautions in place. (2) HTN (hypertension) Is this a current diagnosis for this admission?: Yes Plan: Likely secondary to alcohol withdrawal. IV hydralazine as needed for blood pressure control. We will monitor for indications patient will require chronic antihypertensives at discharge. (3) Liver function study, abnormal Is this a current diagnosis for this admission?: Yes Plan: Overall improving; slightly increased today. Most likely secondary to chronic alcohol abuse. Hepatitis profile pending. Will obtain RUQ U/S. (4) Tobacco abuse Is this a current diagnosis for this admission?: Yes Plan: Smoking cessation is encouraged. Nicotine replacement therapies are provided. (5) Seizure Is this a current diagnosis for this admission?: Yes Plan: Likely secondary to alcohol withdrawal. Patient reports that his last drink was Thursday; 3 days prior to seizure activity. He is given inconsistent reports as to the amount of alcohol he drinks at baseline. He is clearly in withdrawal today. He denies previous history of seizures or epileptic disorder. Patient has been started on IV Keppra; have discontinued as the patient's seizure activity was clearly related to EtOH withdrawal. Treatment for alcohol withdrawal as above. (6) Abrasion of tongue Qualifiers: Encounter type: initial encounter Qualified Code(s): S00.512A - Abrasion of oral cavity, initial encounter Is this a current diagnosis for this admission?: Yes Plan: Injury likely occurred during seizure. He is noted to have abrasion and ecchymosis to the left lateral aspect of his tongue. We will start Magic mouthwash as needed Analgesics as needed. - Time Time Spent with patient: 25-34 minutes Medications reviewed and adjusted accordingly: Yes Anticipated discharge: Home Within: within 48 hours
[2018-10-13] MEDS: NYSTATIN/DEXAMETH/DIPHEN SUSP 120 ML PO SCH ×2 (17:14→23:16)
[2018-10-13] MEDS: NORMAL SALINE 1000 ML 1,000 ML with POTASSIUM CHLORIDE 20 MEQ, MAGNESIUM SULFATE 8 MEQ,... IV SCH ×5 (17:17)
[2018-10-13] MEDS: FAMOTIDINE 20 MG TABLET PO SCH (23:00)
[2018-10-14] MEDS: DIAZEPAM 5 MG TABLET PO SCH (05:46)
[2018-10-14 06:40] LABS: HEMATOCRIT 42.9 % (37.9-51.0); HEMOGLOBIN 14.9 g/dL (13.5-17.0); MEAN CORPUSCULAR HEMOGLOBIN 32.7 pg (27.0-33.4); MEAN CORPUSCULAR HGB CONC 34.8 g/dL (32.0-36.0); MEAN CORPUSCULAR VOLUME 94 fl (80-97); RED BLOOD COUNT 4.57 10^6/uL (4.35-5.55); RED CELL DISTRIBUTION WIDTH 14.2 % (11.5-14.0); WHITE BLOOD COUNT 3.3 10^3/uL (4.0-10.5)
[2018-10-14 06:45] LABS: ANION GAP 10 (5-19); BLOOD UREA NITROGEN 6 mg/dL (7-20); CALCIUM 9.6 mg/dL (8.4-10.2); CARBON DIOXIDE 22 mmol/L (22-30); CHLORIDE 107 mmol/L (98-107); GLUCOSE 93 mg/dL (75-110); POTASSIUM 3.8 mmol/L (3.6-5.0); SODIUM 139.2 mmol/L (137-145)
[2018-10-14 07:53] LABS: PLATELET COUNT 98 10^3/uL (150-450)
--- NOTE | 2018-10-14 08:55 | RADIOLOGY REPORT (SQ) ---
EXAM DESCRIPTION: U/S ABDOMEN LIMITED W/O DOP COMPLETED DATE/TIME: 10/14/2018 6:43 am REASON FOR STUDY: Elevated LFTs COMPARISON: None. TECHNIQUE: Dynamic and static grayscale images acquired of the abdomen and recorded on PACS. Additio nal selected color Doppler and spectral images recorded. LIMITATIONS: Midline bowel gas FINDINGS: PANCREAS: Not visualized due to midline bowel gas LIVER: Echogenic from diffuse hepatocellular disease, difficult to penetrate with the ultrasound ener gy, question fatty infiltration. No focal masses LIVER VASCULATURE: Normal directional flow of the main portal vein and hepatic veins. GALLBLADDER: No stones. Normal wall thickness. No pericholecystic fluid. ULTRASOUND-DETECTED FRANCOIS'S SIGN: Negative. INTRAHEPATIC DUCTS AND COMMON DUCT: CBD and intrahepatic ducts normal caliber. No filling defects. INFERIOR VENA CAVA: Normal flow. AORTA: No aneurysm. RIGHT KIDNEY: Normal size. Normal echogenicity. No solid or suspicious masses. No hydronephrosis. No calcifications. PERITONEAL AND RIGHT PLEURAL SPACE: No ascites or effusions. OTHER: No other significant findings. IMPRESSION: Echogenic liver from diffuse hepatocellular disease or fatty infiltration No gallstones, gallbladder wall thickening or pericholecystic fluid TECHNICAL DOCUMENTATION: JOB ID: [id number] [employer]- All Rights Reserved Reading location - IP/workstation name: [email or web address]
[2018-10-14] MEDS: ENOXAPARIN SODIUM INJ 40 MG/0.4 ML DISP.SYRIN SUBCUT SCH (09:59)
[2018-10-14] MEDS: FAMOTIDINE 20 MG TABLET PO SCH (10:45)
[2018-10-14] MEDS: NICOTINE 14 MG/24 HR PATCH.TD24 TD SCH (10:45)
[2018-10-14] MEDS: NYSTATIN/DEXAMETH/DIPHEN SUSP 120 ML PO SCH (10:46)
[2018-10-14] MEDS ORDERED: DIAZEPAM 2 MG TABLET PO SCH (12:00)
[2018-10-14 12:37] LABS: HEPATITIS A AB IGM Negative (Negative); HEPATITIS B CORE AB IGM Negative (Negative); HEPATITS B SURFACE ANTIGEN Negative (Negative)
[2018-10-14 13:14] VITALS: BP 129/94
[2018-10-14 13:54] LABS: HEPATITIS C VIRUS ANTIBODY <0.1 s/co ratio (0.0-0.9)
--- NOTE | 2018-10-15 21:05 | PDOC DISCHARGE SUMMARY ---
General - Admit/Disc Date/PCP Admission Date/Primary Care Provider: 10/11/18 17:12 Discharge Date: 10/14/18 - Discharge Diagnosis (1) Alcohol withdrawal seizure Is this a current diagnosis for this admission?: Yes Summary: Resolved. Patient was admitted to [facility] on continuous cardiac telemetry. He was supported with IV fluids, scheduled p.o. Valium and as needed IV Ativan for anxiety/agitation or withdrawal symptoms. Mental health consultation was requested; have cleared patient for discharge. (2) HTN (hypertension) Is this a current diagnosis for this admission?: Yes Summary: Resolved. Secondary to #1. Patient was supported with benzodiazepines and IV Hydralazine as needed for blood pressure management. (3) Liver function study, abnormal Is this a current diagnosis for this admission?: Yes Summary: Overall improving; slightly increased today. Secondary to chronic alcohol abuse. Hepatitis profile is negative. RUQ ultrasound revealed echogenic liver from diffuse hepatocellular disease or fatty infiltration. No gallstones, gallbladder wall thickening, or pericholecystic fluid. Patient was advised of the importance of maintaining EtOH sobriety. He is recommended to establish with a primary care provider for continue routine monitoring. (4) Tobacco abuse Is this a current diagnosis for this admission?: Yes Summary: Smoking cessation is encouraged. Nicotine replacement therapies are provided. (5) Seizure Is this a current diagnosis for this admission?: Yes Summary: Secondary to alcohol withdrawal. He denies previous history of seizures or epileptic disorder. Patient was started on IV Keppra at admission; have discontinued as the patient's seizure activity was clearly related to EtOH withdrawal. Treatment for alcohol withdrawal as above. (6) Abrasion of tongue Is this a current diagnosis for this admission?: Yes Summary: Injury likely occurred during seizure. He is noted to have abrasion and ecchymosis to the left lateral aspect of his tongue. Provided a prescription for Magic mouthwash and oxycodone as needed. Educated on use of warm salt water swishes. - Additional Information Resuscitation Status: Full Code Discharge Diet: Regular Discharge Activity: Activity As Tolerated, Balance Activity w/Rest Prescriptions: Diazepam [Valium 2 mg Tablet] 2 mg PO Q6 #8 tablet Folic Acid [Folvite 1 mg Tablet] 1 mg PO DAILY #30 tablet Nicotine [Nicoderm 14 mg/24 Hr Transdermal Patch] 1 each TD DAILY #30 patch.td24 Nystatin/Dexameth/Diphen [Magic Mouthwash (Omh Formula) Susp] 5 ml PO QID #120 ml Oxycodone HCl [Oxy-Ir 5 mg Tablet] 5 mg PO Q6HP PRN #10 tablet PRN Reason: Thiamine HCl [Thiamine 100 mg Tablet] 100 mg PO DAILY #30 tablet Home Medications: Multivitamin [Tab-A-Alejandro (Multiple Vitamin) Tablet] 1 tab PO DAILY 10/11/18 Diazepam [Valium 2 mg Tablet] 2 mg PO Q6 #8 tablet 10/14/18 Folic Acid [Folvite 1 mg Tablet] 1 mg PO DAILY #30 tablet 10/14/18 Nicotine [Nicoderm 14 mg/24 Hr Transdermal Patch] 1 each TD DAILY #30 patch.td24 10/14/18 Nystatin/Dexameth/Diphen [Magic Mouthwash (Omh Formula) Susp] 5 ml PO QID #120 ml 10/14/18 Oxycodone HCl [Oxy-Ir 5 mg Tablet] 5 mg PO Q6HP PRN #10 tablet 10/14/18 Thiamine HCl [Thiamine 100 mg Tablet] 100 mg PO DAILY #30 tablet 10/14/18 History of Present Illness History of Present Illness: Per H&P by Dr. Govea: CHITRA MARQUEZ is a 32 year old male with history of alcohol abuse brought to the emergency room by EMS with seizure activity. According to the patient is walking this morning on the street all of a sudden felt like butterflies with blurred vision then second time he has bright light in his eyes felt like he has a bright light focused on his and his eyes and after that he he does not know exactly what happened and ended up in the ER. Patient admitted he is drinking 3 bottles or 12 ounces of beer every day last one is on Thursday. He never had a seizure before. Denies any tongue bite denies any urinary incontinence fecal incontinence. In the emergency room CT head was done which was negative for acute pathology, at the time of my examination patient is alert awake oriented able to communicate well through physician in private practice. Physical Exam Vital Signs: Temp Pulse Resp BP Pulse Ox 97.5 F 65 16 133/91 H 100 10/14/18 12:19 10/14/18 12:19 10/14/18 12:19 10/14/18 12:10/14/18 12:19 Intake & Output 10/14/18 10/15/18 10/16/18 06:59 06:59 06:59 Intake Total 2309 Balance 2309 Weight 76.3 kg General appearance: PRESENT: no acute distress, disheveled, well-developed, well-nourished - overweight Head exam: PRESENT: atraumatic, normocephalic Eye exam: PRESENT: conjunctiva pink, EOMI, PERRLA. ABSENT: scleral icterus Ear exam: PRESENT: normal external ear exam Mouth exam: PRESENT: moist, tongue midline, other - Abrasion and ecchymosis to left lateral aspect of tongue Neck exam: ABSENT: carotid bruit, JVD, lymphadenopathy, thyromegaly Respiratory exam: PRESENT: clear to auscultation bharat. ABSENT: rales, rhonchi, wheezes Cardiovascular exam: PRESENT: RRR. ABSENT: diastolic murmur, rubs, systolic murmur Pulses: PRESENT: normal dorsalis pedis pul Vascular exam: PRESENT: normal capillary refill GI/Abdominal exam: PRESENT: normal bowel sounds, soft. ABSENT: distended, guarding, mass, organolmegaly, rebound, tenderness Rectal exam: PRESENT: deferred Extremities exam: PRESENT: full ROM. ABSENT: calf tenderness, clubbing, pedal edema Musculoskeletal exam: PRESENT: ambulatory Neurological exam: PRESENT: alert, awake, oriented to person, oriented to place, oriented to time, oriented to situation, CN II-XII grossly intact. ABSENT: motor sensory deficit Psychiatric exam: PRESENT: appropriate affect, normal mood. ABSENT: homicidal ideation, suicidal ideation Skin exam: PRESENT: dry, intact, warm. ABSENT: cyanosis, rash Results Laboratory Results: 10/14/18 05:56 10/14/18 05:56 10/12/18 10/12/18 06:26 06:26 Creatine Kinase 350 H CK-MB (CK-2) 1.32 Troponin I < 0.012 NT-Pro-B Natriuret Pep 91 Impressions: Head CT 10/11/18 11:11 IMPRESSION: NORMAL BRAIN CT WITHOUT CONTRAST. EVIDENCE OF ACUTE STROKE: NO. Chest X-Ray 10/11/18 17:47 IMPRESSION: NO ACUTE RADIOGRAPHIC FINDING IN THE CHEST. Abdomen Ultrasound 10/14/18 00:00 IMPRESSION: Echogenic liver from diffuse hepatocellular disease or fatty infiltration No gallstones, gallbladder wall thickening or pericholecystic fluid Qualifiers - * PATIENT BEING DISCHARGED WITH ANY OF THE FOLLOWING DIAGNOSIS: No Acute Heart Failure - Is this a Heart Failure Patient?: No Plan Discharge Plan: Follow up with primary care provider within 1 week. Take medications as prescribed. Do NOT drink any amount of alcohol. Return to the emergency department as needed for concerning symptoms. Time Spent: Greater than 30 Minutes
== END 2018-10-14 13:34 | disposition home or self-care (01) | DRG 897 ==
LOC: ER 10:07 → EH 17:12 → 3S 20:05
PROVIDERS: ADMIT Internal Medicine; ATTEND Internal Medicine
PROC: 3E0234Z Introduction of Serum, Toxoid and Vaccine into Muscle, Percutaneous Approach (ICD-10-PCS; principal; 2018-10-11)
DX: F10.239 Alcohol dependence with withdrawal, unspecified (principal); G40.509 Epileptic seizures related to external causes, not intractable, without status epilepticus; I10 Essential (primary) hypertension; R94.5 Abnormal results of liver function studies; S00.512A Abrasion of oral cavity, initial encounter; F17.210 Nicotine dependence, cigarettes, uncomplicated; Z60.2 Problems related to living alone; Z79.899 Other long term (current) drug therapy; Z23 Encounter for immunization
CPT/HCPCS: 36415; 70450; 71046; 76705; 80048; 80053; 80074; 80307; 81001; 82550; 82553; 82803; 82962; 83036; 83735; 83880; 84484; 85025; 85027; 85610; 85730; 90715; 93005; 93010; 96374; 99285; J1953; J2060; J3360; J3411; J3475; J3480; J3490; J7030; J7050; S0164